=== PATIENT | female | born 1960 | race Caucasian/White ===

== ENCOUNTER 2017-03-18 19:13 | Emergency (ER) | payer BC ==
[~2017-03-18] VITALS: Ht 157.5 cm; Wt 59.0 kg
[2017-03-18 19:15] VITALS: BP_SYST 142
--- NOTE | 2017-03-18 20:50 | NUR ---
Patient AAOx3, ambulatory. Patient states she "fell on her left wrist and has pain 8/10 pain scale" at this time. Pain radiates to left forearm and left hand. Patient states fall occurred at 1800 this evening, denies injury to head, neck, or back. Purple bump noted to left wrist; patient has limited rotation and full sensation to left wrist, is able to flex and extend left fingers without difficulty. Patient denies any other complaints.
--- NOTE | 2017-03-18 20:50 | NUR ---
PT AMBULATORY TO BED 5 FOR EVALUATION
--- NOTE | 2017-03-18 21:30 | NUR ---
ER Dr. Ramírez at bedside examining patient.
--- NOTE | 2017-03-18 23:00 | NUR ---
Wrist splint placed by MT. Dane Pulses present prior to and after placement of splint. Patient tolerated treatment well.
[2017-03-18 23:13] VITALS: BP_SYST 139
--- NOTE | 2017-03-18 23:13 | NUR ---
Patient given written and verbal discharge instructions and verbalizes understanding. ER MD discussed with patient the results and treatment provided. Patient in stable condition. ID arm band removed. Rx of ibuprofen given. Patient educated on pain management and to follow up with PMD. Pain Scale 2/10. Patient states pain is tolerable. Opportunity for questions provided and answered.
== END 2017-03-18 23:13 | disposition home or self-care (01) ==
LOC: SED 19:13
DX: S63.639A Sprain of interphalangeal joint of unspecified finger, initial encounter (principal); Z91.040 Latex allergy status; W19.XXXA Unspecified fall, initial encounter; Y93.89 Activity, other specified; Y92.89 Other specified places as the place of occurrence of the external cause; Y99.8 Other external cause status
CPT/HCPCS: 99284